=== PATIENT | male | born 1940 | race African-American/Black ===

== ENCOUNTER 2017-09-10 15:51 | Inpatient (IN) | payer OTHER ==
[~2017-09-10] VITALS: Ht 55.9 cm; Wt 114.0 kg
--- NOTE | ~2017-09-10 | 2DMMODE ---
[facility] [address] [place] [address] 2 D/M-MODE ECHOCARDIOGRAM Name: ANGELA COLLIER Room #: 216-P [facility] IN ..#: [id number] Admission: 09/10/17 Attend Phys: Tim Lockhart, Discharge: Date of : 40 Date of Service: 09/11/17 1648 Report #: [id number] THIS REPORT FOR: //name// APPROVED REPORT Study performed: 09/11/2017 10:29:52 EXAM: Comprehensive 2D, Doppler, and color-flow Echocardiogram Patient Location: Bedside Room #: 216 Status: routine BSA: 2.49 BP: 197/94 mmHg Other Information Study Quality: Good Indications Assess Ejection Fraction Hypertension/HDD 2D Dimensions RVDd: 38.51 mm LVEF(%): 61.27 (>50%) IVSd: 19.98 (7-11mm) LVOT Diam: 21.01 (18-24mm) LVDd: 44.99 mm PWd: 17.26 (7-11mm) Ascending Ao: 31.93 (22-36mm) LVDs: 30.27 (25-40mm) Aortic Root: 33.34 mm IVC: 16.00 mm Keyes's LVEF: 61.27 % Volumes Left Atrial Volume (Systole) Single Plane 4CH: 91.38 mL Single Plane 2CH: 116.78 mL LA ESV Index: 45.00 mL/m2 Aortic Valve AoV Peak Jeff.: 1.65 m/s AO Peak Gr.: 10.93 mmHg LVOT Max P.31 mmHg LVOT Max V: 1.04 m/s JOLANTA Vmax: 2.18 cm2 Mitral Valve MV Decel. Time: 206.26 ms MV E Max Jeff.: 1.10 m/s [facility] [place] [address] 2 D/M-MODE ECHOCARDIOGRAM Name: ANGELA COLLIER Room #: 216-P [facility] IN M.R.#: [id number] Admission: 09/10/17 Attend Phys: Tim Lockhart, Discharge: Date of : 40 Date of Service: 09/11/17 1648 Report #: [id number] IVRT: 119.95 ms Pulmonary Valve PV Peak Jeff.: 0.89 m/s PV Peak Gr.: 3.19 mmHg Tricuspid Valve TR Peak Jeff.: 3.27 m/s RAP Estimate: 5.00 mmHg TR Peak Gr.: 42.82 mmHg Left Ventricle The left ventricle is normal size. There is normal LV segmental wall motion. Moderate concentric left ventricular hypertrophy. The left ventricular systolic function is normal. The left ventricular ejection fraction is within the normal range. LVEF is 60%. This study is not technically sufficient to allow evaluation of the LV diastolic function due to atrial fibrillation. Right Ventricle The right ventricle is normal size. The right ventricular systolic function is normal. Atria Left atrium is dilated. Right atrium is dilated. Aortic Valve Aortic valve leaflets are mildly thickened. Trace aortic regurgitation. There is no aortic valvular stenosis. Mitral Valve Mitral valve leaflets are thickened. Mild mitral regurgitation. No evidence of mitral valve stenosis. Tricuspid Valve The tricuspid valve is normal in structure. There is mild tricuspid regurgitation. The right atrial pressure is estimated at 5 mmHg. PAP is estimated at 48 mmHg. Pulmonic Valve The pulmonary valve is normal in structure. Trace pulmonic regurgitation. Great Vessels The aortic root is normal in size. IVC is normal in size and collapses >50% with inspiration. Pericardium [facility] [address] [place] [address] 2 D/M-MODE ECHOCARDIOGRAM Name: ANGELA COLLIER Room #: 216-P [facility] IN [facility].#: [id number] Admission: 09/10/17 Attend Phys: Tim Lockhart, Discharge: Date of : 40 Date of Service: 09/11/17 1648 Report #: [id number] There is no pericardial effusion. <Conclusion> The left ventricular systolic function is normal. LVEF is 60%. Normal LV segmental wall motion. Both atria are mildly dilated. Aortic valve leaflets are mildly thickened. No aortic valvular stenosis, mild insufficiency. Mitral valve leaflets are thickened. Mild mitral regurgitation. Pulmonary artery pressure of 48mmHg There is no pericardial effusion. <ELECTRONICALLY SIGNED> By: Al De Los Santos MD, FACC 09/11/171647 47 47 Al De Los Santos MD, FACC /INF
[2017-09-10 20:02] VITALS: BP 160/75
[2017-09-10 20:30] LABS: HEMATOCRIT 41.3 % (42.0-52.0); MCH 31.4 pg (26.0-34.0); MCHC 33.9 g/dL (28.0-37.0); MCV 92.8 fL (80.0-100.0); RBC 4.45 mil/uL (4.50-6.00); RDW 12.9 % (10.5-14.5); WBC 5.2 thou/uL (4.0-11.0)
[2017-09-10 20:51] LABS: ANION GAP 6 mmol/L (7-16); BUN 16 mg/dL (7-18); CALCIUM 9.3 mg/dL (8.5-10.1); CHLORIDE 106 mmol/L (98-107); CO2 31 mmol/L (21-32); CREATININE 1.3 mg/dL (0.7-1.3); GLUCOSE 101 mg/dL (74-106); POTASSIUM 3.4 mmol/L (3.5-5.1); SODIUM 143 mmol/L (136-145); TROPONIN-I < 0.04 ng/mL (<0.04-0.07)
[2017-09-10 23:44] VITALS: BP 163/85
[2017-09-11 04:58] VITALS: BP 145/97
[2017-09-11 06:09] LABS: CALCIUM 9.2 mg/dL (8.5-10.1); CREATININE 1.2 mg/dL (0.7-1.3); POTASSIUM 3.6 mmol/L (3.5-5.1)
[2017-09-11 08:34] VITALS: BP 197/94
[2017-09-11 08:52] LABS: ALBUMIN 3.4 g/dL (3.4-5.0); CALCIUM 9.2 mg/dL (8.5-10.1); CREATININE 1.3 mg/dL (0.7-1.3); POTASSIUM 3.6 mmol/L (3.5-5.1); TOTAL PROTEIN 6.6 g/dL (6.4-8.2)
[2017-09-11 11:58] VITALS: BP 171/91
[2017-09-11 15:10] VITALS: BP 140/83
[2017-09-11 19:50] VITALS: BP 160/79
[2017-09-12 03:26] VITALS: BP 125/56
[2017-09-12 03:48] VITALS: BP 145/85
[2017-09-12 04:08] LABS: ALBUMIN 3.3 g/dL (3.4-5.0); CALCIUM 8.9 mg/dL (8.5-10.1); CREATININE 1.3 mg/dL (0.7-1.3); POTASSIUM 3.2 mmol/L (3.5-5.1); TOTAL BILIRUBIN 0.7 mg/dL (<0.1-1.0); TOTAL PROTEIN 6.5 g/dL (6.4-8.2)
[2017-09-12 08:00] VITALS: BP 149/77
[2017-09-12 11:50] VITALS: BP 142/72
[2017-09-12 16:05] VITALS: BP 116/65
[2017-09-12] MEDS ORDERED: XARELTO20 MG PO (16:53)
[2017-09-12] MEDS ORDERED: ATORVASTATIN CA10 MG PO (16:53)
[2017-09-12] MEDS ORDERED: AMLODIPINE BESYL5 M1 PO (16:59)
[2017-09-12] MEDS ORDERED: MOBIC7.5 M1 PO (16:59)
[2017-09-12] MEDS ORDERED: POTASSIUM20 PO (16:59)
[2017-09-12] MEDS ORDERED: BYSTOLIC10 MG PO (16:59)
[2017-09-12] MEDS ORDERED: LASIX 40 MG TAB40 M2 PO (16:59)
[2017-09-12] MEDS ORDERED: ALDACTONE25 MG PO (17:08)
[2017-09-12 19:45] VITALS: BP 154/85
[2017-09-13 04:05] VITALS: BP 161/79
[2017-09-13 04:50] LABS: ALBUMIN 3.3 g/dL (3.4-5.0); CALCIUM 9.2 mg/dL (8.5-10.1); CREATININE 1.4 mg/dL (0.7-1.3); POTASSIUM 3.3 mmol/L (3.5-5.1); TOTAL BILIRUBIN 0.8 mg/dL (<0.1-1.0); TOTAL PROTEIN 6.7 g/dL (6.4-8.2)
[2017-09-13 07:35] VITALS: BP 172/100
[2017-09-13 10:21] VITALS: BP 172/100
[2017-09-13 10:23] VITALS: BP 172/100
[2017-09-13 11:35] VITALS: BP 110/38
[2017-09-13 13:43] VITALS: BP 172/100
== END 2017-09-13 14:51 | disposition home or self-care (01) | DRG 305 ==
LOC: 2N 15:51 → ENTRNSPT 09-13 13:20 → EDTRNSPTSTS 09-13 13:23 → 2N 09-13 14:51
PROVIDERS: Internal Medicine Cardiovascular Disease; Nurse Practitioner Adult Health
DX: I16.0 Hypertensive urgency (principal); I50.30 Unspecified diastolic (congestive) heart failure; I48.2 Chronic atrial fibrillation; I11.0 Hypertensive heart disease with heart failure
CPT/HCPCS: 10081

== ENCOUNTER → 2020-05-12 | Outpatient (CLI) | payer OTHER ==
[~2020-05-12] MED LIST: ALDACTONE25 MG PO; AMLODIPINE BESYL5 M1 PO; ATORVASTATIN CA10 MG PO; BYSTOLIC10 MG PO; LASIX 40 MG TAB40 M2 PO; MOBIC7.5 M1 PO; POTASSIUM20 PO; XARELTO20 MG PO
== END ==
LOC: SJCVC 10:55
PROVIDERS: ATTEND Internal Medicine Cardiovascular Disease
DX: I48.20 Chronic atrial fibrillation, unspecified (principal); I45.10 Unspecified right bundle-branch block; R94.31 Abnormal electrocardiogram [ECG] [EKG]; I25.10 Atherosclerotic heart disease of native coronary artery without angina pectoris; I10 Essential (primary) hypertension; E78.00 Pure hypercholesterolemia, unspecified; D68.59 Other primary thrombophilia; E78.5 Hyperlipidemia, unspecified; M81.0 Age-related osteoporosis without current pathological fracture; Z79.899 Other long term (current) drug therapy; Z82.49 Family history of ischemic heart disease and other diseases of the circulatory system; Z87.891 Personal history of nicotine dependence

== ENCOUNTER → 2020-06-06 | Outpatient (CLI) | payer OTHER | LOC: SJCVCIMAG 07:45 | PROVIDERS: ATTEND Internal Medicine Cardiovascular Disease | DX: I08.1 Rheumatic disorders of both mitral and tricuspid valves (principal); I48.20 Chronic atrial fibrillation, unspecified; I11.9 Hypertensive heart disease without heart failure; I25.10 Atherosclerotic heart disease of native coronary artery without angina pectoris; Z87.891 Personal history of nicotine dependence ==

== ENCOUNTER 2020-06-22 16:34 | Emergency (ER) | payer OTHER ==
[~2020-06-22] VITALS: Ht 195.6 cm; Wt 108.4 kg
[2020-06-22 18:40] LABS: ABSOLUTE NEUTROPHILS 7.8 thou/uL (1.4-8.2); BASOPHILS 0.3 % (0.0-2.0); HEMATOCRIT 40.1 % (42.0-52.0); HEMOGLOBIN 13.4 gm/dL (14.0-18.0); LYMPHOCYTES 5.3 % (24.0-44.0); MCH 31.1 pg (26.0-34.0); MCHC 33.5 g/dL (28.0-37.0); MCV 92.7 fL (80.0-100.0); MONOCYTES 1.2 % (1.0-8.0); PLATELET COUNT 190 thou/uL (150-400); POLYS 93.2 % (36.0-66.0); RBC 4.32 mil/uL (4.50-6.00); RDW 13.3 % (10.5-14.5); WBC 8.3 thou/uL (4.0-11.0)
[2020-06-22 19:00] LABS: CALCIUM 9.6 mg/dL (8.5-10.1); CREATININE 2.1 mg/dL (0.7-1.3); POTASSIUM 3.8 mmol/L (3.5-5.1)
[2020-06-22 19:04] LABS: ALBUMIN 4.1 g/dL (3.4-5.0); DIRECT BILIRUBIN 0.2 mg/dL (<0.1-0.2); TOTAL BILIRUBIN 0.6 mg/dL (0.2-1.0); TOTAL PROTEIN 8.2 g/dL (6.4-8.2)
[2020-06-22 19:37] LABS: URINE BILIRUBIN NEGATIVE (Negative); URINE BLOOD TRACE (Negative); URINE CLARITY CLEAR; URINE COLOR YELLOW; URINE GLUCOSE-RANDOM* NEGATIVE (Negative); URINE KETONES NEGATIVE (Negative); URINE LEUKOCYTES-REFLEX NEGATIVE (Negative); URINE NITRITE-REFLEX NEGATIVE (Negative); URINE PROTEIN (DIPSTICK) NEGATIVE (Negative)
[2020-06-22 20:37] VITALS: BP 145/85
== END 2020-06-22 20:49 | disposition home or self-care (01) ==
LOC: ER 16:34
PROVIDERS: Emergency Medicine
DX: R33.9 Retention of urine, unspecified (principal); R51 Headache; I10 Essential (primary) hypertension; E78.00 Pure hypercholesterolemia, unspecified; Z95.5 Presence of coronary angioplasty implant and graft; Z96.652 Presence of left artificial knee joint; Z98.890 Other specified postprocedural states; Z79.899 Other long term (current) drug therapy; Z79.82 Long term (current) use of aspirin

== ENCOUNTER → 2020-06-22 | Outpatient (CLI) | payer OTHER ==
[~2020-06-22] VITALS: Ht 195.6 cm; Wt 112.9 kg
[~2020-06-22] MED LIST changes: +ASA81BEC PO; +BENICAR20 MG PO; +TORSEMIDE20 MG PO
--- NOTE | ~2020-06-22 | HC ---
[facility] [place] [address] CONSULTATION Name: ANGELA COLLIER Room #: REG SAJAN [place]#: [id number] Admission: 06/22/20 Attend Phys: Tim Lockhart MD, Discharge: Date of : 40 Report #: [id number] THIS REPORT FOR: cc: Alexys Jovel MD, Jeffrey A. MD Forman, John M. MD ~ CC: Tim Jovel DATE OF SERVICE: 06/22/2020 We were asked by Dr. Lockhart to see the patient. HISTORY OF PRESENT ILLNESS: The patient is a 79-year-old with coronary artery disease. The patient has a history of chronic atrial fibrillation and has had previous right coronary and LAD stents. The patient complains of some exertional angina. Nuclear stress test was positive. Cardiac catheterization today demonstrates 70% distal left main along with 90% LAD and 80% circumflex stenoses, right coronary has a 90% lesion in it with diffuse disease beyond. Left ventricular function was not checked today, but is normal by recent echo without important valve disease. Other history includes hypertension, hyperlipidemia. The patient denies diabetes mellitus. MEDICATIONS: At home includes vitamin C, Lipitor, Mobic, Bystolic, potassium, Xarelto, Aldactone, vitamin E. ALLERGIES: ALLERGIC TO CLONIDINE. 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 REVIEW OF SYSTEMS: GENERAL: No weight change. No fever. EYES: No vision change. HEENT: No headache, no hearing loss. No nasal or sinus problems. RESPIRATORY: Denies cough, denies dyspnea. CARDIAC: As mentioned, some exertional angina. Denies palpitations, but does admit to having had low heart rate. GASTROINTESTINAL: No nausea, vomiting, or blood. GENITOURINARY: Some urgency and frequency. No blood. MUSCULOSKELETAL: Occasional cramping in the feet. [facility] [address] [place] [address] CONSULTATION Name: ANGELA COLLIER Room #: [facility]#: [id number] Admission: 06/22/20 Attend Phys: Tim Lockhart MD, Discharge: Date of : 40 Report #: [id number] SKIN: No rash or infection. NEUROLOGIC: No motor or sensory loss. ENDOCRINE: No goiter, no tremor. PHYSICAL EXAMINATION: CONSTITUTIONAL: The patient is lying in bed, post catheterization. He is awake and alert, but a bit anxious. VITAL SIGNS: Blood pressure 160/70, heart rate 60. Atrial fibrillation. HEENT: No scleral icterus is seen. The patient does have arcus senilis. NECK: No mass, no bruit. CHEST: Clear to auscultation. HEART: Rhythm is atrial fibrillation (irregularly irregular). No murmur. ABDOMEN: Soft, no mass. EXTREMITIES: Trace edema distally. No clubbing or cyanosis, 2+ popliteal pulses bilaterally, 1+ dorsalis pedis pulses bilaterally. MUSCULOSKELETAL: We note, status post left knee replacement. SKIN: No rash or infection. PSYCHIATRIC: Shows insight into problem, but is a bit anxious today. Answers questions appropriately, otherwise. IMPRESSION: The patient has left main and 3-vessel coronary artery disease with good ventricular function. Risks and details of coronary artery bypass were discussed. Operation and other approaches were compared and contrasted. Risks of surgery include but are not limited to bleeding, infection, anesthesia risks, risks of heart and lung problems, stroke and as mentioned. Options and alternatives were reviewed. The patient understands all of this and wishes to proceed. I have discussed the case with Dr. Lockhart as well. We will obtain other remainder of preoperative studies and check MRSA today scheduling to be determined based on our ability to proceed in this environment with increased rates of COVID. Thank you for the consult. By: 1349 13 Chad Lopez MD /nt
[2020-06-22 07:29] VITALS: BP 162/79
[2020-06-22 07:37] LABS: HEMATOCRIT 40.4 % (42.0-52.0); HEMOGLOBIN 13.6 gm/dL (14.0-18.0); MCH 31.1 pg (26.0-34.0); MCHC 33.7 g/dL (28.0-37.0); MCV 92.1 fL (80.0-100.0); RBC 4.39 mil/uL (4.50-6.00); RDW 13.5 % (10.5-14.5); WBC 5.6 thou/uL (4.0-11.0)
[2020-06-22 07:45] LABS: CALCIUM 9.5 mg/dL (8.5-10.1); CREATININE 2.2 mg/dL (0.7-1.3); POTASSIUM 3.7 mmol/L (3.5-5.1)
--- NOTE | 2020-06-22 08:40 | EKG ---
[facility] [place] [address] ELECTROCARDIOGRAM REPORT Name: ANGELA COLLIER Harmony Room #: REG [facility]#: [id number] Admission: 06/22/20 Attend Phys: Tim Lockhart MD, Discharge: Date of : 40 Report #: [id number] THIS REPORT FOR: cc: Alexys Jovel MD, Jeffrey A. MD Lundgren, Craig H. 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 : 1940 Requested By: Tim Lockhart Order Number: [id number] MD: Al De Los Santos Measurements Intervals [place] Rate: 73 P: [place]: QRS: -55 QRSD: 170 T: 8 QT: 447 QTc: 493 Interpretive Statements Atrial fibrillation RBBB and LAFB Compared to ECG 08/03/2004 21:29:35 Left anterior fascicular block now present Right bundle-branch block now present Sinus bradycardia no longer present Atrial fibrillation has replaced sinus bradycardia Electronically Signed On 06-22-2020 8:40:30 CDT by Al De Los Santos [email or web address] <ELECTRONICALLY SIGNED> By: Al De Los Santos MD, [facility] 06/22/2040 1 1 Al De Los Santos MD, [facility] /EPI
--- NOTE | 2020-06-22 18:18 | CATHLAB ---
[facility] [address] [place] [address] INVASIVE PROCEDURE REPORT Name: ANGELA COLLIER Room #: REG SA[facility]AN [facility]#: [id number] Admission: 06/22/20 Attend Phys: Tim Lockhart MD, Discharge: Date of : 40 Report #: [id number] THIS REPORT FOR: cc: Alexys Jovel MD, Jeffrey A. MD Mancuso, Gerald M. MD [facility] ~ APPROVED REPORT Study performed: 06/22/2020 09:28:41 Patient Details Patient Status: Out-Patient Room #: The patient is a 79 year-old male Event Personnel Tim Lockhart Paper Maker, Alexx Marcial RN RN, Anastacia Tapia RN, Hattie Mckeon RTR, SUPERVISOR YARD Monitor, Tawana Galvan RTR Scrub Procedures Performed Art Access - R femoral artery* Darrion Access - R femoral vein Right and Left Heart Cath w/or w/o Coronarie [id number] RLHC Renal Bilateral Peripheral Angiography 8449415 CVRENALBIL Hemostasis with Manual pressure Hemostasis w/ Mynx 74107 Initial Mod Sed Same Phys/QHP Gr5y 794657 62312 Mod Sed Same Phys/QHP Ea 007043 Indication Dyspnea, Positive stress test Procedure Narrative The Right Groin^ was infiltrated with subcutaneous anesthesia. A PINNACLE 6FR Sheath #[id number] sheath was inserted into the RFA. Coronary angiography was performed using coronary diagnostic catheters. The right coronary system was accessed and visualized with a JR4 catheter. The left coronary system was accessed and visualized with a JL4 catheter. The left ventricle was accessed and visualized with a PIGTAIL catheter. Left ventricular/Aortic Valve gradient assessed via catheter pullback. Closure device was deployed with a 6 Fr MYNXGRIP 6/7F #[id number]. The patient tolerated the procedure well and there were no complications associated with the procedure. There was no hematoma. Intraoperative Conscious Sedation [facility] [place] [address] INVASIVE PROCEDURE REPORT Name: ANGELA COLLIER [id number] Admission: 06/22/20 Attend Phys: Tim Lockhart, Discharge: Date of : 40 Report #: [id number] Sedation start time: 10:14 Case end Time: 10:50 Fentanyl 50 mcg Versed 1 mg Fluoro Time: 3.40 minutes Dose: DAP 9396.00 cGycm2 1173 mGy Contrast Type and Amount: Visipaque 45 ml Hemodynamics The right atrial mean pressure is 14 mmHg. The right ventricular pressure is 48/4 mmHg. The pulmonary artery pressure is 45/21 mmHg with a mean of 30 mmHg. The mean pulmonary capillary wedge pressure is 19 mmHg. The aortic pressure is 173/80 mmHg with a mean of 120 mmHg. The left ventricular pressure is 168/8 mmHg with a mean of mmHg. The left ventricular end diastolic pressure is 24 mmHg. The cardiac output using thermo method is 5.45 L/min. The cardiac index using thermo method is 2.22 L/min/m2. Conclusion 1. Left ventricular pressure measurements were obtained but no LV gram performed. Ejection fraction has been mildly reduced. By noninvasive means #2 distal left main of 60 to 70% giving rise to complex trifurcation disease involving the distal left main ostial LAD and circumflex. #3 ostial calcified LAD lesion of 80% with mild diffuse distal disease. There is a proximal stent which is mildly restenosed. #4 ostial circumflex proximal circumflex with eccentric lesion of 70 to 80% mildly calcified nondominant but moderate in distribution distally. Large OM branch #5 dominant right coronary artery with high-grade subtotaled mid vessel lesion and moderately diseased PDA relatively small in caliber. Question of whether this would be a graftable vessel. #6 selective injection of bilateral renal arteries has a 30 to 40% ostial left renal artery stenosis and mild right ostial renal artery disease Recommendations and plan: Continue aggressive risk factor modification. Has renal insufficiency of limited contrast. IV Lasix has been given. Will obtain CV surgical consultation and carotid Doppler. <ELECTRONICALLY SIGNED> By: Tim Lockhart MD, FACC 06/22/201817 17 17 Tim Lockhart MD, FACC /INF
--- NOTE | 2020-06-23 07:29 | EKG ---
[facility] [place] [address] ELECTROCARDIOGRAM REPORT Name: AMIRAMACANGELA L Room #: REG [facility]#: [id number] Admission: 06/22/20 Attend Phys: Tim Lockhart MD, Discharge: Date of : 40 Report #: [id number] THIS REPORT FOR: cc: Alexys Jovel MD, Jeffrey A. MD Lundgren, Craig H. 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 : 1940 Requested By: Tim Lockhart Order Number: [id number] MD: Al De Los Santos Measurements Intervals [place] Rate: 76 P: [place]: QRS: -57 QRSD: 165 T: -6 QT: 446 QTc: 502 Interpretive Statements Atrial fibrillation Ventricular premature complex Right bundle branch block Inferior infarct, age indeterminate Baseline wander in lead(s) II,III,aVF Compared to ECG 06/22/2020 07:22:23 Ventricular premature complex(es) now present Electronically Signed On 06-23-2020 7:29:38 CDT by Al De Los Santos [email or web address] <ELECTRONICALLY SIGNED> By: Al De Los Santos MD, [facility] 06/23/20 0729 1255 1255 Al De Los Santos MD, [facility] /EPI
== END | disposition home or self-care (01) ==
LOC: CATH 06:44
PROVIDERS: ATTEND Internal Medicine Cardiovascular Disease
DX: R94.39 Abnormal result of other cardiovascular function study (principal); R06.00 Dyspnea, unspecified; I25.10 Atherosclerotic heart disease of native coronary artery without angina pectoris; T82.855A Stenosis of coronary artery stent, initial encounter; I70.1 Atherosclerosis of renal artery; I10 Essential (primary) hypertension; E78.5 Hyperlipidemia, unspecified; I48.91 Unspecified atrial fibrillation; Z79.899 Other long term (current) drug therapy; Z98.890 Other specified postprocedural states; Z96.652 Presence of left artificial knee joint; Z79.01 Long term (current) use of anticoagulants

== ENCOUNTER → 2020-06-22 | Outpatient (CLI) | payer OTHER | LOC: SJCVCIMAG 12:32 | PROVIDERS: ATTEND Internal Medicine Cardiovascular Disease | DX: I65.23 Occlusion and stenosis of bilateral carotid arteries (principal) ==

== ENCOUNTER 2020-07-03 18:40 | Emergency (ER) | payer OTHER ==
[~2020-07-03] VITALS: Ht 190.5 cm; Wt 108.9 kg
[2020-07-03 19:05] LABS: ABSOLUTE NEUTROPHILS 7.4 thou/uL (1.4-8.2); BASOPHILS 0.3 % (0.0-2.0); EOSINOPHILS 0.7 % (0.0-3.0); HEMATOCRIT 36.7 % (42.0-52.0); HEMOGLOBIN 12.5 gm/dL (14.0-18.0); LYMPHOCYTES 9.4 % (24.0-44.0); MCH 31.6 pg (26.0-34.0); MCHC 34.2 g/dL (28.0-37.0); MCV 92.3 fL (80.0-100.0); MONOCYTES 9.4 % (1.0-8.0); PLATELET COUNT 204 thou/uL (150-400); POLYS 80.2 % (36.0-66.0); RBC 3.97 mil/uL (4.50-6.00); RDW 12.8 % (10.5-14.5); WBC 9.2 thou/uL (4.0-11.0)
[2020-07-03 19:09] LABS: ANION GAP 12 mmol/L (7-16); BUN 48 mg/dL (7-18); CALCIUM 9.1 mg/dL (8.5-10.1); CHLORIDE 101 mmol/L (98-107); CO2 26 mmol/L (21-32); CREATININE 2.7 mg/dL (0.7-1.3); GLUCOSE 140 mg/dL (74-106); POTASSIUM 3.9 mmol/L (3.5-5.1); SODIUM 139 mmol/L (136-145)
[2020-07-03 19:19] LABS: ALBUMIN 3.5 g/dL (3.4-5.0); SGOT 14 U/L (15-37); SGPT 14 U/L (30-65); TOTAL BILIRUBIN 0.8 mg/dL (0.2-1.0); TOTAL PROTEIN 7.7 g/dL (6.4-8.2); TROPONIN-I <0.06 ng/mL (<0.06)
[2020-07-03 19:53] LABS: URINE BILIRUBIN NEGATIVE (Negative); URINE BLOOD 3+ (Negative); URINE GLUCOSE-RANDOM* NEGATIVE (Negative); URINE KETONES NEGATIVE (Negative); URINE LEUKOCYTES-REFLEX 3+ (Negative); URINE NITRITE-REFLEX NEGATIVE (Negative); URINE PROTEIN (DIPSTICK) 2+ (Negative); URINE UROBILINOGEN 0.2 E.U./dl (0.2-1.0)
[2020-07-03 19:54] LABS: URINE CLARITY CLOUDY; URINE COLOR REDDISH
[2020-07-03 19:56] LABS: BACTERIA-REFLEX 1-9 Few /HPF (None Seen); CASTS None Seen /LPF (None Seen); SQUAMOUS None Seen /LPF (0-3); URINE RBC >20 Many /HPF (0-2); URINE WBC-REFLEX 6-15 Few /HPF (0-5)
[2020-07-03 19:57] LABS: CRYSTALS None Seen /LPF (None Seen)
[2020-07-03 22:59] LABS: HEMATOCRIT 33.8 % (42.0-52.0); HEMOGLOBIN 11.7 gm/dL (14.0-18.0); MCH 32.2 pg (26.0-34.0); MCHC 34.5 g/dL (28.0-37.0); MCV 93.3 fL (80.0-100.0); RBC 3.63 mil/uL (4.50-6.00); WBC 10.3 thou/uL (4.0-11.0)
[2020-07-03] MEDS ORDERED: KEFLEX500 M1 PO (23:09)
[2020-07-03 23:10] VITALS: BP 111/62
--- NOTE | 2020-07-05 16:01 | EKG ---
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 : 1940 Requested By: Chad Newell Order Number: [id number] MD: Dc Proctor Measurements Intervals [place] Rate: 65 P: [place]: QRS: -52 QRSD: 150 T: -6 QT: 415 QTc: 432 Interpretive Statements Atrial fibrillation RBBB and LAFB Compared to ECG 06/22/2020 12:55:22 Left anterior fascicular block now present Ventricular premature complex(es) no longer present Myocardial infarct finding no longer present Electronically Signed On 07-05-2020 16:00:57 CDT by Dc Proctor [email or web address] <ELECTRONICALLY SIGNED> By: Dc Proctor MD 07/05/201599 12 12 Dc Proctor MD /EPI
== END 2020-07-03 23:51 | disposition home or self-care (01) ==
LOC: ER 18:40
PROVIDERS: Emergency Medicine
DX: N39.0 Urinary tract infection, site not specified (principal); R31.9 Hematuria, unspecified; R33.9 Retention of urine, unspecified; R11.0 Nausea; I10 Essential (primary) hypertension; E78.00 Pure hypercholesterolemia, unspecified; Z96.652 Presence of left artificial knee joint; Z98.890 Other specified postprocedural states; Z79.899 Other long term (current) drug therapy; Z79.82 Long term (current) use of aspirin

== ENCOUNTER → 2020-07-11 | Outpatient (CLI) | payer OTHER ==
[~2020-07-11] MED LIST changes: +KEFLEX500 M1 PO
== END ==
LOC: SJCVCIMAG 09:20
PROVIDERS: ATTEND Internal Medicine Cardiovascular Disease
DX: Z01.818 Encounter for other preprocedural examination (principal)

== ENCOUNTER 2020-07-18 14:17 | Emergency (ER) | payer OTHER ==
[~2020-07-18] VITALS: Ht 190.5 cm; Wt 108.9 kg
[~2020-07-18 14:17] MED LIST changes: +FINASTERIDE5 MG PO; +LIPITOR20 MG PO; +MELOXICAM15 MG PO; +POTASSIUM GLUCO99 M2 PO; +TAMSULOSIN HCL0.4 MG PO; +TYLENOL EXTRA500 MG PO; +VITAMIN C500 M1 PO; +VITAMIN E400 UNI6 PO
[2020-07-18 14:44] LABS: URINE BILIRUBIN NEGATIVE (Negative); URINE BLOOD NEGATIVE (Negative); URINE CLARITY CLEAR; URINE COLOR YELLOW; URINE GLUCOSE-RANDOM* NEGATIVE (Negative); URINE KETONES NEGATIVE (Negative); URINE LEUKOCYTES-REFLEX NEGATIVE (Negative); URINE NITRITE-REFLEX NEGATIVE (Negative); URINE PROTEIN (DIPSTICK) NEGATIVE (Negative)
[2020-07-18 16:18] VITALS: BP 164/87
== END 2020-07-18 16:19 | disposition home or self-care (01) ==
LOC: ER 14:17
PROVIDERS: Physician Assistant
DX: R33.9 Retention of urine, unspecified (principal); R31.9 Hematuria, unspecified; I10 Essential (primary) hypertension; E78.00 Pure hypercholesterolemia, unspecified; Z96.652 Presence of left artificial knee joint; Z79.899 Other long term (current) drug therapy

== ENCOUNTER 2020-07-21 06:15 | Inpatient (IN) | payer OTHER ==
[2020-07-18 11:11] LABS: URINE BILIRUBIN NEGATIVE (Negative); URINE BLOOD NEGATIVE (Negative); URINE CLARITY CLEAR; URINE COLOR YELLOW; URINE GLUCOSE-RANDOM* NEGATIVE (Negative); URINE KETONES NEGATIVE (Negative); URINE LEUKOCYTES-REFLEX NEGATIVE (Negative); URINE NITRITE-REFLEX NEGATIVE (Negative); URINE PROTEIN (DIPSTICK) NEGATIVE (Negative)
[2020-07-18 12:55] LABS: ABSOLUTE NEUTROPHILS 4.9 thou/uL (1.4-8.2); BASOPHILS 0.6 % (0.0-2.0); EOSINOPHILS 1.6 % (0.0-3.0); HEMATOCRIT 34.5 % (42.0-52.0); HEMOGLOBIN 11.5 gm/dL (14.0-18.0); LYMPHOCYTES 19.4 % (24.0-44.0); MCH 30.9 pg (26.0-34.0); MCHC 33.4 g/dL (28.0-37.0); MCV 92.3 fL (80.0-100.0); MONOCYTES 9.9 % (1.0-8.0); PLATELET COUNT 221 thou/uL (150-400); POLYS 68.5 % (36.0-66.0); RBC 3.74 mil/uL (4.50-6.00); RDW 13.2 % (10.5-14.5); WBC 7.1 thou/uL (4.0-11.0)
--- NOTE | 2020-07-18 13:09 | NUR ---
PT IN FOR HIS PRE SURGERY VISIT, 07/18. PT C/O URINARY RETENTION SINCE HIS CARDIAC CATH ON 06/22. HAS BEEN TO THE ED TWICE FOR THIS WITH THE LAST VISIT 07/03 WHERE AN INDWELLING CATH WAS LEFT IN PLACE D/T LARGE RESIDUAL URINE VOLUME. PT STATES HE ALSO COMPLETED AN ANTIBIOTIC FOR THIS. PT STATES HE SAW DR. FISHER'S PARTNER ON 07/13 WHEN THEY REMOVED HIS CATHETER AND SET UP A F/U APPT FOR AUGUST. PT STATES HE BEGAN NOTICING THE SAME SYMPTOMS A COUPLE DAYS POST CATHETER REMOVAL--UNABLE TO PASS MORE THAN A THIMBLE FULL OF URINE AND HAVING BLADDER SPASMS POST VOID MEANWHILE LEAKING URINE EVERY TIME HE STANDS UP AND THROUGH THE NITE. PT VOIDED 5-10ML FOR THIS NURSE, DID POST VOID BLADDER SCAN SHOWING > 675ML IN BLADDER. NOTIFIED CITLALI WITH DR. VALLEJO WHO ADVISED WE CONTACT DR. FISHER. CALL OUT TO HIM AT THIS TIME. SET UP APPT FOR PT TO SEE DR. VALLEJO AGAIN THIS WEEK ON SAT AT 1000 TO BE SURE HE WILL BE FIT FOR SURGERY ON SATURDAY. PT AWAITING RETURN CALL FROM DR. VALLEJO AT THIS TIME.
[2020-07-18 13:13] LABS: APTT 31.7 Seconds (24.5-32.8); INR 1.2
[2020-07-18 13:17] LABS: ALBUMIN 3.8 g/dL (3.4-5.0); CALCIUM 9.2 mg/dL (8.5-10.1); CREATININE 1.9 mg/dL (0.7-1.3); POTASSIUM 3.6 mmol/L (3.5-5.1); TOTAL BILIRUBIN 0.8 mg/dL (0.2-1.0); TOTAL PROTEIN 7.2 g/dL (6.4-8.2)
--- NOTE | 2020-07-18 14:24 | NUR ---
SPOKE WITH DR. JOSEPH'S OFFICE WHO WAS WILLING TO SEE PT IN THE MORNING TO REPLACE HIS CATHETER. PT DECIDED HE WOULD LIKE TO FEEL BETTER TODAY SO OPTED TO BE TAKEN TO THE ED TO HAVE THE CATHETER REPLACED. SPOKE WITH YFN CAMEJO, WHO AGREED TO SEE PT AND REPLACE HIS CATHETER. TAKEN BY FOR COVID TESTING FIRST THEN LEFT WITH THE ED STAFF. PT GIVEN INFO TO SEE DR. VALLEJO ON SAT AT 1000.
--- NOTE | 2020-07-19 07:41 | EKG ---
[facility] [place] [address] ELECTROCARDIOGRAM REPORT Name: MAC COLLIERFANI Antunez Room #: [facility] [place] ..#: [id number] Admission: Attend Phys: Chad Lopez MD Discharge: Date of : 40 Report #: [id number] THIS REPORT FOR: cc: Vikas Garcia Kent DO Lundgren, Craig H. 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 : 1940 Requested By: Chad Lopez Order Number: [id number] MD: Al De Los Santos Measurements Intervals [place] Rate: 56 P: [place]: QRS: -52 QRSD: 167 T: 8 QT: 436 QTc: 421 Interpretive Statements Atrial fibrillation Ventricular premature complex Right bundle branch block Compared to ECG 07/03/2020 19:13:17 Ventricular premature complex(es) now present Electronically Signed On 07-19-2020 7:41:04 CDT by Al De Los Santos [email or web address] <ELECTRONICALLY SIGNED> By: Al De Los Santos MD, [facility] 07/19/20 0741 1207 120 Al De Los Santos MD, [facility] /EPI
[2020-07-20 01:06] LABS: GLYCOHEMOGLOBIN (HGB A1C) 5.6 % (4.8-5.6)
[~2020-07-21] VITALS: Ht 195.6 cm; Wt 110.2 kg
[2020-07-21] VITALS (14 sets, daily range): BP systolic 102–147; BP diastolic 51–75
[2020-07-21 12:47] LABS: HEMATOCRIT 24.2 % (42.0-52.0); MCH 31.9 pg (26.0-34.0); MCHC 33.9 g/dL (28.0-37.0); RBC 2.57 mil/uL (4.50-6.00); RDW 13.4 % (10.5-14.5); WBC 3.7 thou/uL (4.0-11.0)
[2020-07-21 12:54] LABS: HEMOGLOBIN 8.2 gm/dL (14.0-18.0)
[2020-07-21 13:05] LABS: FIBRINOGEN 326.1 mg/dL (210-360); PROTIME 17.5 Seconds (9.3-11.4)
[2020-07-21 13:12] LABS: INR 1.7
[2020-07-21 14:02] LABS: POC BE 2 mmol/L (-2.0 to +3.0); POC CA IONIZED 4.3 mg/dL (4.5-5.3); POC GLUCOSE 145 mg/dL (70-99); POC HCO3 26.3 mmol/L (22.0-26.0); POC HEMOGLOBIN 8.5 g/dL (14.0-18.0); POC POTASSIUM 3.6 mmol/L (3.5-5.1); POC SODIUM 139 mmol/L (136-145); POC pCO2 38.5 mmHg (35.0-45.0); POC pH 7.443 (7.360-7.450)
[2020-07-21 14:02] LABS: POC BE 4 mmol/L (-2.0 to +3.0); POC CA IONIZED 4.7 mg/dL (4.5-5.3); POC GLUCOSE 111 mg/dL (70-99); POC HCO3 27.5 mmol/L (22.0-26.0); POC HEMOGLOBIN 10.2 g/dL (14.0-18.0); POC POTASSIUM 3.3 mmol/L (3.5-5.1); POC SODIUM 139 mmol/L (136-145); POC pCO2 38.3 mmHg (35.0-45.0); POC pH 7.464 (7.360-7.450)
[2020-07-21 14:02] LABS: POC BE -1 mmol/L (-2.0 to +3.0); POC CA IONIZED 4.9 mg/dL (4.5-5.3); POC GLUCOSE 129 mg/dL (70-99); POC HCO3 23.7 mmol/L (22.0-26.0); POC HEMOGLOBIN 9.2 g/dL (14.0-18.0); POC POTASSIUM 3.5 mmol/L (3.5-5.1); POC SODIUM 139 mmol/L (136-145); POC pCO2 39.3 mmHg (35.0-45.0); POC pH 7.388 (7.360-7.450)
[2020-07-21 14:02] LABS: POC BE 2 mmol/L (-2.0 to +3.0); POC CA IONIZED 4.3 mg/dL (4.5-5.3); POC GLUCOSE 158 mg/dL (70-99); POC HCO3 26.5 mmol/L (22.0-26.0); POC HEMOGLOBIN 7.8 g/dL (14.0-18.0); POC POTASSIUM 4.2 mmol/L (3.5-5.1); POC SODIUM 137 mmol/L (136-145); POC pCO2 41.8 mmHg (35.0-45.0)
[2020-07-21 14:02] LABS: POC BE 0 mmol/L (-2.0 to +3.0); POC CA IONIZED 5.2 mg/dL (4.5-5.3); POC GLUCOSE 150 mg/dL (70-99); POC HCO3 24.3 mmol/L (22.0-26.0); POC HEMOGLOBIN 8.8 g/dL (14.0-18.0); POC POTASSIUM 3.6 mmol/L (3.5-5.1); POC SODIUM 139 mmol/L (136-145); POC pH 7.403 (7.360-7.450)
[2020-07-21 14:02] LABS: POC BE 1 mmol/L (-2.0 to +3.0); POC CA IONIZED 4.7 mg/dL (4.5-5.3); POC GLUCOSE 142 mg/dL (70-99); POC HCO3 25.8 mmol/L (22.0-26.0); POC HEMOGLOBIN 8.8 g/dL (14.0-18.0); POC POTASSIUM 3.2 mmol/L (3.5-5.1); POC SODIUM 139 mmol/L (136-145); POC pCO2 39.7 mmHg (35.0-45.0); POC pH 7.421 (7.360-7.450)
[2020-07-21 14:02] LABS: POC BE 1 mmol/L (-2.0 to +3.0); POC CA IONIZED 4.4 mg/dL (4.5-5.3); POC GLUCOSE 155 mg/dL (70-99); POC HEMOGLOBIN 7.1 g/dL (14.0-18.0); POC POTASSIUM 3.9 mmol/L (3.5-5.1); POC SODIUM 139 mmol/L (136-145); POC pCO2 41.2 mmHg (35.0-45.0); POC pH 7.409 (7.360-7.450)
[2020-07-21 15:00] LABS: APTT 32.1 Seconds (24.5-32.8); INR 1.3; PROTIME 13.4 Seconds (9.3-11.4)
[2020-07-21 15:07] LABS: HEMATOCRIT 25.5 % (42.0-52.0); HEMOGLOBIN 8.7 gm/dL (14.0-18.0); MCH 31.6 pg (26.0-34.0); MCHC 33.9 g/dL (28.0-37.0); RBC 2.75 mil/uL (4.50-6.00); RDW 13.6 % (10.5-14.5); WBC 8.1 thou/uL (4.0-11.0)
[2020-07-21 15:08] LABS: CALCIUM 8.2 mg/dL (8.5-10.1); CREATININE 1.7 mg/dL (0.7-1.3); MAGNESIUM 2.4 mg/dL (1.8-2.4); POTASSIUM 3.8 mmol/L (3.5-5.1)
[2020-07-21 15:08] LABS: BE(vivo) -2.8 mmol/L (-2 to +3); HCO3 22.6 mmol/L (22.0-26.0); PCO2 41.5 mmHg (35.0-45.0); pH 7.354 (7.360-7.450); sO2 99.2 % (92.0-98.0)
--- NOTE | 2020-07-21 15:55 | NUR ---
ASSESSMENTS AND INTERVENTIONS DOCCUMETNED. PATIENT ARRIVED TO ICU AROUND 1418. PATIENT NON RESPONSIVE AND ON NO SEDATION. ANESTHESIA, OR NURSE AND YFN CAZARES AT BEDSIDE. PATIENT STABALIZED. DR. KOO ROUNDING ON PATIENT. PATIENT HAVING NO CHEST TUBE OUTPUT ON ARRIVAL. CHEST TUBE CHANGED PRIOR TO OR DEPARTURE. DR. KOO AWARE. SALES REP STATING PATIENT HAD ABOUT 100CC OUT PRIOR TO CHAMBER CHANGE.
[2020-07-21 19:00] LABS: CALCIUM 8.7 mg/dL (8.5-10.1); CREATININE 1.6 mg/dL (0.7-1.3); POTASSIUM 4.1 mmol/L (3.5-5.1)
[2020-07-21 19:46] LABS: BE(vivo) -2.5 mmol/L (-2 to +3); HCO3 21.5 mmol/L (22.0-26.0); PCO2 34.3 mmHg (35.0-45.0); PO2 194.2 mmHg (80.0-100.0); pH 7.416 (7.360-7.450); sO2 99.4 % (92.0-98.0)
[2020-07-21 20:40] LABS: BE(vivo) -2.8 mmol/L (-2 to +3); HCO3 22.4 mmol/L (22.0-26.0); PCO2 40.1 mmHg (35.0-45.0); PO2 123.1 mmHg (80.0-100.0); pH 7.364 (7.360-7.450); sO2 98.3 % (92.0-98.0)
[2020-07-22] VITALS (15 sets, daily range): BP systolic 110–134; BP diastolic 59–77
[2020-07-22 06:33] LABS: HEMATOCRIT 29.3 % (42.0-52.0); HEMOGLOBIN 9.7 gm/dL (14.0-18.0); MCH 31.3 pg (26.0-34.0); MCV 94.8 fL (80.0-100.0); RBC 3.09 mil/uL (4.50-6.00); WBC 9.2 thou/uL (4.0-11.0)
[2020-07-22 06:41] LABS: CREATININE 1.5 mg/dL (0.7-1.3); MAGNESIUM 2.5 mg/dL (1.8-2.4); POTASSIUM 3.7 mmol/L (3.5-5.1)
--- NOTE | 2020-07-22 06:41 | NUR ---
Please note, Chest tube drainage was miscalculated, Mediastinal tubes with 230 ml's and pleural tube with 130 ml's of drainage. Walters catheter with 1150 ml's of clear yellow urine to DD. Pt was gotten up to the recliner this morning, he transferred well and is currently resting with his eyes closed. He has a low dose of cardene infusing to keep art line BP <140 mmHg. MAP's on the art line and cuff pressures have consistently been 70's to 80's. Pt was extubated at 2049, was placed on face shield at 40% and was changed to NC at 2341, sats have been 98% and above, BUL are coarse at times, diminished to bases. Insulin is infusing at 2 units/hr, with BGL's ranging from 164 to 86. Pt has been treated for discomfort with relief obtained. Will continue to monitor.
--- NOTE | 2020-07-22 09:08 | EKG ---
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 : 1940 Requested By: Edward Bucio Order Number: [id number] MD: Al De Los Santos Measurements Intervals [place] Rate: 71 P: 66 MS: 189 QRS: -34 QRSD: 124 T: 10 QT: 498 QTc: 542 Interpretive Statements Sinus rhythm Atrial premature complexes Incomplete right bundle branch block Diffuse ST segment elevation, consider pericarditis Compared to ECG 07/18/2020 12:07:24 Atrial premature complex(es) now present ST segment elevation is now present Atrial fibrillation no longer present Electronically Signed On 07-22-2020 9:08:20 CDT by Al De Los Santos [email or web address] <ELECTRONICALLY SIGNED> By: Al De Los Santos MD, [facility] 07/22/20907 2 2 Al De Los Santos MD, [facility] /EPI
[2020-07-22 09:57] LABS: POC BE 0 mmol/L (-2.0 to +3.0); POC GLUCOSE 161 mg/dL (70-99); POC HCO3 25.1 mmol/L (22.0-26.0); POC HEMOGLOBIN 8.8 g/dL (14.0-18.0); POC POTASSIUM 3.7 mmol/L (3.5-5.1); POC SODIUM 141 mmol/L (136-145); POC pCO2 41.3 mmHg (35.0-45.0); POC pH 7.392 (7.360-7.450)
--- NOTE | 2020-07-22 09:58 | NUR ---
ASSESSMENT: CM REVIEWED CHART. PT IS S/P CABG. CM REACHED OUT TO PATIENTS DAUGHTER ROBERT TO GATHER INFORMATION. PT LIVES IN A HOUSE ALONE. PT HAS ABOUT 9 STEPS WITH HANDRAILS TO ENTER THE FRONT DOOR BUT SHE STATES THEY CAN WALK THROUGH THE YARD TO AVOID STEPS. SHE REPORTS ONCE INSIDE PT HAS ABOUT 21 TOTAL STEPS TO HIS BEDROOM. PT NORMALLY AMBULATES USING A CANE OR WALKER. DAUGHTER REPORTS THAT PATIENT STILL DRIVES AND IS VERY INDEPENDENT. SHE REPORTS THAT THROUGH THE PANDEMIC SHE HAS BEEN GOING TO THE STORE FOR HIM. PTS DAUGHTER REPORTS LIVING CLOSE AND IS ABLE TO STAY THE NIGHT WITH HIM IF NEEDED BUT REPORTS WORKING DURING THE DAY. SHE REPORTS PT HAS NOT HAD HH IN THE PAST NOR BEEN TO A SNF. PT/OT HAS BEEN ORDERED TO SEE PATIENT. SHE REPORTS PT WILL WANT TO GO HOME AT DISCHARGE AND LIKELY WILL NOT WANT HH BUT SHE REPORTS THEY HAVE NO PREFERENCE OF HH COMPANY IF ONE IS NEEDED. CM WILL CONTINUE TO FOLLOW TO ASSIST NEEDED.
--- NOTE | 2020-07-22 14:24 | NUR ---
Nutrition: Consult received. Pt S/P CABG with left atrial appendage clip. Will followup when out of ICU to assess education needs.
--- NOTE | 2020-07-22 14:26 | O ---
[facility] [place] [address] OPERATIVE REPORT Name: ANGELA COLLIER Room #: 249-P ADM IN M.R.#: [id number] Admission: 07/21/20 Attend Phys: Chad Lopez MD Discharge: Date of : 40 Report #: [id number] THIS REPORT FOR: cc: Vikas Garcia Kent DO Forman,Chad Vitale MD ~ CC: Chad Monson DATE OF SERVICE: 07/21/2020 PREOPERATIVE DIAGNOSIS: Coronary artery disease and atrial fibrillation (chronic). POSTOPERATIVE DIAGNOSIS: Coronary artery disease and atrial fibrillation (chronic). OPERATION: Coronary artery bypass x 5 including left internal mammary artery to left anterior descending artery, saphenous vein to marginal 1, and marginal 2 and saphenous vein to posterior descending artery and endoscopic harvest, left greater saphenous vein and left atrial clip application. SURGEON: Chad Lopez MD PERCUSSION TEACHER: YFN Ribera. ANESTHESIA: General. INDICATIONS: The patient is an 80-year-old seen for Dr. Lockhart. The patient has 70% left main and subtotal right coronary artery stenoses. Left ventricular function is satisfactory. The patient has chronic atrial fibrillation. FINDINGS AND TECHNIQUE: After general anesthesia was established, saphenous vein was harvested using an endoscopic approach and prepared for use as a conduit. Exposure was obtained through median sternotomy. Left internal mammary artery was harvested from chest wall. Pericardial well was made. Cannulation sutures were placed. Heparin was given. Aorta was cannulated. Right atrium was cannulated. Cardioplegia needle was positioned in the aortic root. Retrograde cardioplegic catheter was placed in coronary sinus. Cardiopulmonary bypass was established. The aorta was cross clamped. Antegrade and retrograde cardioplegia were given. Ice was poured in the pericardial well. The heart was stopped. [facility] [address] [place] [address] OPERATIVE REPORT Name: ANGELA COLLIER Room #: 249-P [facility] IN .R.#: [id number] Admission: 07/21/20 Attend Phys: Chad Lopez MD Discharge: Date of : 40 Report #: [id number] During electromechanical arrest, the distal anastomoses were performed and end-to-side anastomosis was made between vein and the posterior descending artery. This was diffusely diseased vessel and the artery itself was a 1.3 mm vessel. Cold cardioplegia was given. A separate segment of vein was sewn in end-to-side fashion to the large second marginal. This was a 1.7 mm vessel. Cold cardioplegia was given. The same segment of vein was sewn in end-to-side fashion to a diffusely diseased first marginal artery. This was a 1.4 mm vessel. Cold cardioplegia was given. Left internal mammary artery was sewn in end-to-side fashion to left anterior descending artery. This was diffusely diseased vessel as well and was 1.5 mm were bypassed. The anastomosis was checked with the temperature technique and the Doppler. Cold cardioplegia was given. Two proximal anastomoses were performed. When these were complete, warm retrograde cardioplegia was given followed by warm continuous blood to the coronary sinus. When this infusion was complete, the crossclamp was removed, de-airing maneuvers were performed. The anastomoses were inspected and found to be satisfactory. As the patient warmed, nice cardiac activity resumed, chest tubes and pacing wires were placed, a marker was placed around the proximal anastomoses. It should be mentioned that immediately after cardiopulmonary bypass was established and the crossclamp was applied and cardioplegia was given the left atrial clip was placed. The left atrial appendage was measured and a 50 mm clip was selected and placed securely at the base of the appendage. After the proximal anastomoses were performed, warm retrograde cardioplegia was given followed by warm continuous blood to the coronary sinus. When this infusion was complete, the crossclamp was removed, de-airing maneuvers were performed. The anastomoses were inspected and found to be satisfactory. As the patient warmed, nice cardiac activity resumed, chest tubes and pacing wires were placed, a marker was placed around the proximal anastomoses. When the patient was warm, he was weaned from cardiopulmonary bypass. Venous cannula was removed. Protamine was given, the aortic cannula was removed. Flows were measured in the bypass grafts. When hemostasis was satisfactory, chest was irrigated with antibiotic solution and closed in the usual fashion. The patient was taken to the Intensive Care Unit in good condition having tolerated the procedure well. All counts reported as correct. <ELECTRONICALLY SIGNED> By: Chad Lopez MD 07/22/20 1426 38 50 Chad Lopez MD /nt
[2020-07-23] VITALS (8 sets, daily range): BP systolic 100–131; BP diastolic 47–75
[2020-07-23 05:10] LABS: HEMATOCRIT 26.2 % (42.0-52.0); HEMOGLOBIN 8.9 gm/dL (14.0-18.0); MCHC 33.8 g/dL (28.0-37.0); MCV 94.6 fL (80.0-100.0); RBC 2.77 mil/uL (4.50-6.00); RDW 13.8 % (10.5-14.5); WBC 10.7 thou/uL (4.0-11.0)
--- NOTE | 2020-07-23 05:16 | NUR ---
Pt reports better pain control this shift, he has been resting better and able to use the IS more comfortably. Pt has declined repositioning, the HOB has been adjusted, especially when taking PO food/fluids. He has been afebrile, heart rate has been a bit irregular through the night, BP has been stable, with cardene infusing at 2 mg/hr (9.2 ML'S). Pt is on room air, LCTA, sats have been 91% and above. Pleural chest tube remains patent, color of drainage is pale pink and approx 160 ml's this shift. Walters is draining clear yellow urine, over 600 ml's voided. The bed is in the low/locked position, the call light is within reach, the siderails are up x 4 and the pt is progressing toward his POC goals. Pt to be transferred to his recliner this morning.
[2020-07-23 05:29] LABS: CALCIUM 8.8 mg/dL (8.5-10.1); CREATININE 1.5 mg/dL (0.7-1.3); POTASSIUM 3.8 mmol/L (3.5-5.1)
--- NOTE | 2020-07-23 14:00 | NUR ---
Assummed care on patient at 0700 today. Patient up in the chair for 3 hours this AM. Pain controlled with pain management regime. Rt radial A line, acosta and introducer DC'D per order. Patient progressing, will continue to monitor.
--- NOTE | 2020-07-23 19:41 | NUR ---
Patient transferred to [facility] from ICU at 1745 with belongings, accomanyied by his daughter Marilu. via chair. This nurse assummed care on 2N. Patient continues to pick at food and he is dozing in the chair. Up to the commode earlier at approximately 1530 for bm. Monitor stable.
--- NOTE | 2020-07-24 01:33 | NUR ---
ASSESSMENTS CHARTED, MEDS CHARTED GIVEN. PATIENT ARRIVED PRIOR TO SHIFT CHANGE, STILL BEING SETTLED INTO ROOM. RESTING IN RECLINER AT START OF SHIFT. PATIENT'S SAVAGE WAS DISCONTINUED [id number] AND PATIENT STILL HAD NOT URINATED. BLADDER SCANNED INTIALLY WITH 382 SCANNED. WAITED A HOUR, RESCANNED 456 MLS. STRAIGHT CATH'D 400 MLS OUT. PAIN MEDS GIVEN AFTER PATIENT TRANSFERED TO BED. FALL PRECAUTIONS IN PLACE.
[2020-07-24 04:00] VITALS: BP 145/72
[2020-07-24 08:07] VITALS: BP 134/64
[2020-07-24 11:18] VITALS: BP 119/69
[2020-07-24 15:35] VITALS: BP 114/61
--- NOTE | 2020-07-24 17:11 | NUR ---
PT CARE ASSUMED APPROX 0700. ASSESSMENTS CHARTED. PT DENIES SOA, N/V. VSS. UP WITH MAX ASSIST TO CHAIR AND BSC. PT REPORTS ADEQUATE PAIN MANAGEMENT OF RIGHT ANKLE. HE REPORTS PAIN AN OLD FOOTBALL INJURY THAT IS CHRONIC. SAVAGE PLACED PER DR VALLEJO'S ORDER AFTER PT HAD EPISODES OF RETENTION X3. NO ISSUES WITH PLACEMENT. PT TOLERATING POC. NO DISTRESS NOTED.
[2020-07-24 20:05] VITALS: BP 128/70
[2020-07-25] VITALS (7 sets, daily range): BP systolic 110–169; BP diastolic 62–91
--- NOTE | 2020-07-25 03:20 | NUR ---
assumed pt care at thw change of shift, pt is awake, alert and orientedx4, makes needs known, c/o a 8/ pain on his right ankle, medicated prn as ordered with partial relief, remains on room air, vital signs stable, remains afib on the monitor, concerned about getting his mobility back, sternal dressing cdi, scds on, b/s stable, no acute distress noted, daughter updated about care this shift, will continue to monitor
[2020-07-25 04:30] LABS: HEMATOCRIT 28.2 % (42.0-52.0); HEMOGLOBIN 9.4 gm/dL (14.0-18.0); MCH 31.2 pg (26.0-34.0); MCHC 33.3 g/dL (28.0-37.0); MCV 93.9 fL (80.0-100.0); RDW 13.8 % (10.5-14.5); WBC 9.9 thou/uL (4.0-11.0)
[2020-07-25 04:33] LABS: CALCIUM 9.4 mg/dL (8.5-10.1); CREATININE 1.5 mg/dL (0.7-1.3)
--- NOTE | 2020-07-25 05:34 | NUR ---
attempted to obtain standing weight, pat unable to stand due to pain in his right ankle, medicated with no relief, will reasess again, vs remains stable
--- NOTE | 2020-07-25 10:23 | EKG ---
[facility] [place] [address] ELECTROCARDIOGRAM REPORT Name: MAC COLLIERFANI Antunez Room #: 211-P ADM IN M.R.#: [id number] Admission: 07/21/20 Attend Phys: Chad Lopez MD Discharge: Date of : 40 Report #: [id number] THIS REPORT FOR: cc: Vikas Garcia Kent DO Lundgren,Al Cosme MD [facility] ~ THIS REPORT FOR: //name// [facility] Test Date: 2020-07-25 Test Time: 07:06:03 Pat Name: ANGELA COLLIER Department: Room: 211 P Gender: M Floorperson: KERRIE : 1940 Requested By: Chad Lopez Order Number: [id number] MD: Al De Los Santos Measurements Intervals [place] Rate: 79 P: [place]: QRS: -44 QRSD: 150 T: 18 QT: 396 QTc: 455 Interpretive Statements Atrial fibrillation Right bundle branch block Inferior infarct, old Baseline wander in lead(s) V6 Compared to ECG 07/22/2020 07:13:58 Atrial fibrillation has replaced sinus rhythm Diffuse ST segment elevation is no longer present Electronically Signed On 07-25-2020 10:23:18 CDT by Al De Los Santos [email or web address] <ELECTRONICALLY SIGNED> By: Al De Los Santos MD, [facility] 07/25/20 1023 5 5 Al De Los Santos MD, [facility] /EPI
--- NOTE | 2020-07-25 17:54 | NUR ---
RECEIVED PT'S CARE AROUND 07; PT. ON BED; RESTING WITH EYES CLOSED; EQUAL CHEST RISING NOTICED; AFIB ON THE MONITOR; DURING AM ASSESSMENT PT. AOX4; C/O PAIN OVER R. ANKLE; PRN PO PAIN MEDICATION GIVEN WITH AM MEDICATIONS; [employer] SALES ENGINEER NOTIFIED DURING ROUNDING; ORDERS ON PLACED; ELEVATED URIC ACID; PHYSICIAN NOTIFIED DURING ROUNDING; ORDERS ON PLACED; MEDICATION GIVEN; PT. & DAUGHTER EDUCATED ABOUT NEW MEDICATIONS; ST. UNDERSTANDING; PT. NOT ABLE TO WORK WITH PT & OT DUE TO PAIN OVER ANKLE; PRN PAIN MEDICATION GIVEN EARLY ON THE AFTERNOON; MONITORING; EDUCATED ABOUT IS; ST. UNDERSTANDING; ASSESSMENT CHARGED; FOLLOWING POC; WILL PASS ON REPORT;
[2020-07-26 00:30] VITALS: BP 147/87
[2020-07-26 04:04] LABS: CALCIUM 8.8 mg/dL (8.5-10.1); CREATININE 1.6 mg/dL (0.7-1.3); POTASSIUM 4.2 mmol/L (3.5-5.1)
--- NOTE | 2020-07-26 04:06 | NUR ---
assumed pt care at the change of shift, pt is resting in bed, no signs of distress, assessments as charted, remains afib on the monitor, remains on room air, vss, bs stable, c/o a 6/10 pain on the left ankle, medicated prn as ordered with partial relief, will continue to monitor
[2020-07-26 05:00] VITALS: BP 150/77
--- NOTE | 2020-07-26 06:40 | NUR ---
attempted to take standing weight, pt sat on the side of the bed was wa not able to stand due to ankle pain, pt back in bed, will pass on report
[2020-07-26 07:26] VITALS: BP 152/83
--- NOTE | 2020-07-26 08:37 | EKG ---
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 /EPI
[2020-07-26 11:36] VITALS: BP 123/69
--- NOTE | 2020-07-26 14:11 | NUR ---
PATIENT IS A CANDIDATE FOR ACUTE REHAB/[facility]. AUTHORIZATION FROM INSURANCE REQUESTED THIS DATE AND CLINICAL INFORMATION FAXED TO INSURANCE COMPANY. AWAITING RESPONSE. ANALYTICAL DATA MINER AWARE. THANK YOU FOR THIS REFERAL.
--- NOTE | 2020-07-26 14:39 | NUR ---
CM REVIEWED CHART. [facility] HAS BEEN CONSULTED FOR PATIENT AND THEY ARE ABLE TO ACCEPT PATIENT PENDING INSURNACE AUTH. CM SPOKE WITH [facility] WHO REPORTS THEY HAVE STARTED THE AUTH PROCESS. CM WILL CONTINUE TO FOLLOW TO ASSIST NEEDED.
--- NOTE | 2020-07-26 15:02 | NUR ---
No dietary education needed at this time. Nutrition assessment for length of stay completed.
[2020-07-26 15:15] VITALS: BP 116/68
--- NOTE | 2020-07-26 17:43 | NUR ---
RECEIVED PT'S CARE AROUND 0720; PT. ON BED; AOX4; AFIB ON THE MONITOR; DURING AM ASSESSMENT C/O PAIN OVER R. ANKLE; PRN PAIN MEDICATION GIVEN WITH AM MEDICATIONS; EDUCATED ABOUT NEW MEDICATIONS; ST. UNDERSTANDING; EDUCATED ABOUT THE IMPORTANCE OF DRINKING ENSURANCE; ST. UNDERSTANDING; ICE PACK GIVEN FOR R. ANKLE; EDUCATED ABOUT THE IMPORTANCE OF GETTING UP FROM BED WITH REST IN BETWEEN; ST. UNDERSTANDING; PRN MIRALAX GIVEN; ABLE TO GET UP FROM BED TO CHAIR WITH PT; ABLE TO PERFORMED & USED THE BED SIDE COMMODE WITH OT; NOT ABLE TO HAVE A BM; ST. PASSING GAS; BACK ON BED DURING THE AFTERNOON; DAUGHTER UPDATED ABOUT IT DURING THE AFTERNOON; INSULIN REPLACED; ASSESSMENT CHARGED; FOLLOWING POC; WILL PASS ON REPORT;
[2020-07-26 20:30] VITALS: BP 129/71
--- NOTE | 2020-07-27 02:31 | NUR ---
ASSUMED CARE OF PATIENT AT 1900. AT INITIAL ASSESSMENT PATIENT C/O STERNAL PAIN AROUND INCISION SITE AND PAIN IN RIGHT FOOT. ADMINISTERED PRN NORCO ORDERED. ENCOURAGED I.S. PATIENT APPEARED TO REST WELL THROUGH THE NOC AND IS PROGESSING TOWARDS GOALS.
[2020-07-27 04:16] LABS: HEMATOCRIT 25.8 % (42.0-52.0); HEMOGLOBIN 8.7 gm/dL (14.0-18.0); MCH 31.5 pg (26.0-34.0); MCHC 33.6 g/dL (28.0-37.0); MCV 93.7 fL (80.0-100.0); RBC 2.76 mil/uL (4.50-6.00); WBC 9.9 thou/uL (4.0-11.0)
[2020-07-27 04:30] VITALS: BP 137/86
[2020-07-27 08:26] VITALS: BP 143/80
[2020-07-27 11:35] VITALS: BP 122/72
--- NOTE | 2020-07-27 15:26 | NUR ---
CALL RECEIVED FROM [facility] AUTHORIATION FOR ACUTE REHAB STAY FOR PATIENT, ANGELA COLLIER. REASON FOR DENIAL WAS THAT REQUEST LACKED SUPPORT FOR ACUTE REHAB STAY. IF PHYSICIAN WISHES TO PERFORM A PEER TO PEER CALL, IT CAN BE ARRANGED BY CALLING . CALL MUST BE SCHEDULED BY 11:00 J2EE PROGRAMMER ON . JOINTER SUBMARINE CABLE INFORMED OF DENIAL.
--- NOTE | 2020-07-27 16:00 | NUR ---
ASSESSMENT CHARTED. PT ALERT AND ORIENTED. VSS. UP IN THE CHAIR THIS SHIFT. PRN PAIN MED GIVEN WITH PARTIAL RELIEF. PARTICIPATED IN PT AND OT. NO CARDIAC OR RESPIRATORY DISTRESS NOTED. NO CONCERNS AT THIS TIME.
[2020-07-27 16:09] VITALS: BP 116/73
--- NOTE | 2020-07-27 16:31 | NUR ---
Spoke with patient and dtr Priti. Patient not accepted to [facility] insurance denied. Left [employer] list for post acute care in room with patient and emailed dtr. Discussed possible HH as well. Plan to determine how patient does with therapy in am. Discussed with Norris with CTS.
[2020-07-27 19:44] VITALS: BP 125/80
[2020-07-28 00:20] VITALS: BP 124/80
--- NOTE | 2020-07-28 02:51 | NUR ---
ASSUMED CARE 1900. PT ALERT AND ORIENTED. VITALS STABLE. SR ON THE MONITOR. REPEORTS MINIMAL STERNAL INCISION PAIN. PT ALSO REPORTS RIGHT TOE PAIN. ELSA DRESSING BLINKING YELLOW, PA AWARE, PT TO SHOWER TOMORROW AND HAVE DRESSING CHANGED. PT ENCOURAGED TO USE THE IS. NO OTHER CONCERNS AT THIS TIME. WILL CONTINUE TO MONITOR AND FOLLOW POC.
[2020-07-28 04:04] VITALS: BP 141/84
[2020-07-28 05:59] LABS: HEMATOCRIT 27.8 % (42.0-52.0); HEMOGLOBIN 9.4 gm/dL (14.0-18.0); MCH 31.6 pg (26.0-34.0); MCHC 33.7 g/dL (28.0-37.0); MCV 93.8 fL (80.0-100.0); RBC 2.97 mil/uL (4.50-6.00); RDW 13.9 % (10.5-14.5); WBC 10.2 thou/uL (4.0-11.0)
[2020-07-28 06:22] LABS: CALCIUM 9.3 mg/dL (8.5-10.1); CREATININE 1.4 mg/dL (0.7-1.3); POTASSIUM 4.3 mmol/L (3.5-5.1)
[2020-07-28 07:30] VITALS: BP 127/71
[2020-07-28 11:40] VITALS: BP 107/63
[2020-07-28 16:00] VITALS: BP 94/53
--- NOTE | 2020-07-28 16:34 | NUR ---
FAXED REFERRAL TO [facility] SPOKE WITH AMAURI IN ADM SHE RECEIVED REFERRAL AND WILL REVIEW. DP TO FOLLOW.
--- NOTE | 2020-07-28 16:56 | NUR ---
Spoke with therapy and CTS. patient has not attempted steps at this time. he may struggle with steps with sternal precautions. Discussed with dtr and patient. Plan to pursue skilled care. Reviewed [employer] list inquired into [facility], no beds until next week, inquired into [facility] they are closed to admissions. Referral to [facility] who is allowing window visits. Patient cont to strongly want to return home. Needs Covid test.
[2020-07-28 20:39] VITALS: BP 134/66
[2020-07-29 03:30] VITALS: BP 149/87
--- NOTE | 2020-07-29 06:22 | NUR ---
PT ALERT AND ORIENTED. REPORTS FEELING BETTER THAN YESTERDAY. ELSA DRESSING INTACT BUT NOT BLINKING, UNSUCCESSFUL WITH ALL THE TROUBLESHOOT. AM RN NOTIFIED FOR PHYSICIAN UPDATE. ALL ASSESSMENTS DOCUMENTED. REPORTS STERNAL PAIN ALLEVIATED BY PRN NORCO. DENIES ANY OTHER C/O. WILL CONTINUE TO MONITOR AND FOLLOW POC
[2020-07-29 09:00] VITALS: BP 114/63
--- NOTE | 2020-07-29 15:21 | NUR ---
PT UP TO CHAIR AND AMBULATE HALLS WITH PT/OT. CONTINUE ICENTIVE SPIROMETER. PT RPOGRESSING TOWARDS GOALS.
[2020-07-29 16:30] VITALS: BP 104/53
--- NOTE | 2020-07-29 17:16 | NUR ---
Referral to [facility] for post acute care. They are accepting but do not have auth. Possible to rec auth on Saturday. Facility will inquire if rec, they will alert unit or contact centre supervisor. Chart will need to be copied. Orders faxed to [facility] [phone]. Call report to [facility] at [phone]. [facility] may arrange transport if not call [facility] at [phone] [facility]. Call dtr to alert of dc and timeframe.
[2020-07-29 20:45] VITALS: BP 153/74
--- NOTE | 2020-07-30 02:41 | NUR ---
assumed pt care at the change of shift, pt is awake, alert and orientedx4, remains afib on the monitor, denied pain during assessments, vss, remains on room air, reminded to use the IS, no acute distress noted, will continue to monitor
[2020-07-30 04:00] VITALS: BP 130/71
[2020-07-30 07:25] VITALS: BP 115/76
[2020-07-30 11:30] VITALS: BP 111/67
--- NOTE | 2020-07-30 15:47 | NUR ---
PT ALERT AND ORIENTED. VSS. PRN PAIN MED GIVEN WITH PARTIAL RELIEF. UP IN THE CHAIR THIS SHIFT. AFIB ON TELE. STERNUM PRECAUTION ENFORCED. PARTICIPATED IN PT/OT. PROGRESSING WELL TOWARDS DISCHARGE GOAL. NO CONCERNS AT THIS TIME.
[2020-07-30 18:00] VITALS: BP 111/69
[2020-07-30 21:14] VITALS: BP 100/51
--- NOTE | 2020-07-31 03:07 | NUR ---
ASSESSMENT DOCUMENTED.PT BEEN RESTING IN NO ACUTE DISTRESS.S/P CABG.DRESSING TO STERNUM CDI.VSS. ASSSITED WITH SHOWER LAST NOC.HAD LARGE SOFT BM.C/O GENERALIZED PAIN THAT WAS CONTROLLLED WITH TYLENOL.ENCOURAGED WITH IS,PULLS TO 1999.PT DENIES ANY CONCERNS AT THIS TIME.POC IS TO [facility] TO REHAB OR HOME W/HH.
[2020-07-31 04:45] VITALS: BP 136/85
[2020-07-31 07:50] VITALS: BP 119/56
[2020-07-31] MEDS ORDERED: NORVASC5 MG PO (08:44)
[2020-07-31] MEDS ORDERED: LIPITOR40 MG PO (08:44)
[2020-07-31] MEDS ORDERED: ASPIR 8181 MG PO (08:44)
[2020-07-31] MEDS ORDERED: FERREX 150 PLU1 EAC1 PO (09:27)
[2020-07-31 10:50] VITALS: BP 119/56
--- NOTE | 2020-07-31 12:02 | NUR ---
FAXED REFERRAL TO [facility] RECEIVED CONFIRMATION LEFT MSG WITH DERMATOLOGICAL SURGEON NURSE WILL F/U ON REFERRAL ON SATURDAY PHYSICIAN NEEDS TO UPDATE DC SUMMARY WILL FAX ON SATURDAY. JUST SPOKE WITH SACHIN [facility] SHE WILL HAVE ISABELL RN CALL ME REGARDING REFERRAL. DP TO FOLLOW.
[2020-07-31] MEDS ORDERED: ALLOPURINOL 10100 M2 PO (14:26)
--- NOTE | 2020-07-31 15:08 | NUR ---
ASSESSMENT CHARTED. PT ALERT AND ORIENTED. VSS. AFIB ON THE MONITOR. SEEN WITH DR. VALLEJO. ORDERS GIVEN TO DISCHARGE PT TO HOME WITH HOME HEALTH. DISCHARGE INSTRUCTIONS GIVEN TO PT AND THE DAUGHTER. THEY BOTH VERBERLISED UNDERSTANDING.
[2020-08-01 09:39] VITALS: BP 119/56
--- NOTE | 2020-08-01 10:10 | NUR ---
JUST SPOKE WITH GARO AT [facility] THEY CAN ACCEPT PT AND WILL CALL TO ARRANGE VISITS WITH PT.
[2020-08-01] MEDS ORDERED: LIPITOR40 MG PO (16:10)
[2020-08-01] MEDS ORDERED: KEFLEX500 M1 PO (16:40)
== END 2020-07-31 15:10 | disposition home health service (06) | DRG 236 ==
LOC: TBA 06:15 → ICU 06:15 → PRE 08:37 → ICU 14:24 → PRE 14:25 → 2N 07-23 17:46
PROVIDERS: Nurse Practitioner; Physician Assistant; ADMIT Surgery Vascular Surgery; ATTEND Surgery Vascular Surgery
PROC: 4A133B1 Monitoring of Arterial Pressure, Peripheral, Percutaneous Approach (ICD-10-PCS; principal; 2020-07-21)
PROC: 0BH17EZ Insertion of Endotracheal Airway into Trachea, Via Natural or Artificial Opening (ICD-10-PCS; principal; 2020-07-21)
PROC: 5A1221Z Performance of Cardiac Output, Continuous (ICD-10-PCS; principal; 2020-07-21)
PROC: 06BQ4ZZ Excision of Left Saphenous Vein, Percutaneous Endoscopic Approach (ICD-10-PCS; principal; 2020-07-21)
PROC: 021209W Bypass Coronary Artery, Three Arteries from Aorta with Autologous Venous Tissue, Open Approach (ICD-10-PCS; principal; 2020-07-21)
PROC: 05HY33Z Insertion of Infusion Device into Upper Vein, Percutaneous Approach (ICD-10-PCS; principal; 2020-07-21)
PROC: 4A133J1 Monitoring of Arterial Pulse, Peripheral, Percutaneous Approach (ICD-10-PCS; principal; 2020-07-21)
PROC: 02L70CK Occlusion of Left Atrial Appendage with Extraluminal Device, Open Approach (ICD-10-PCS; principal; 2020-07-21)
PROC: 03HY32Z Insertion of Monitoring Device into Upper Artery, Percutaneous Approach (ICD-10-PCS; principal; 2020-07-21)
PROC: 02100Z9 Bypass Coronary Artery, One Artery from Left Internal Mammary, Open Approach (ICD-10-PCS; principal; 2020-07-21)
PROC: 5A1935Z Respiratory Ventilation, Less than 24 Consecutive Hours (ICD-10-PCS; principal; 2020-07-21)
DX: I25.10 Atherosclerotic heart disease of native coronary artery without angina pectoris (principal); I48.21 Permanent atrial fibrillation; I10 Essential (primary) hypertension; E78.5 Hyperlipidemia, unspecified; M10.9 Gout, unspecified; D64.9 Anemia, unspecified; R33.9 Retention of urine, unspecified; Z20.828 Contact with and (suspected) exposure to other viral communicable diseases; Z88.8 Allergy status to other drugs, medicaments and biological substances; Z95.5 Presence of coronary angioplasty implant and graft; Z87.891 Personal history of nicotine dependence; N18.3 Chronic kidney disease, stage 3 (moderate)
CPT/HCPCS: 10078; 10081; 47000; 47001; 47002; 48888; 50010; 50249; 50409; 50456; 50498; 50668; 51301; 52131; 52259; 52287; 52314; 53327; 53358; 54118; 56455; 56524; 56525; 56526; 56527; 56528; 56531; 56534; 56719; 56760; 56898; 57093; 57116; 57167; 62110; 62950; 65020; 65047; 65120; 65135; 83006

== ENCOUNTER 2020-08-01 15:16 | Emergency (ER) | payer OTHER ==
[~2020-08-01] VITALS: Ht 195.6 cm; Wt 109.3 kg
[~2020-08-01 15:16] MED LIST changes: +ALLOPURINOL 10100 M2 PO; +ASPIR 8181 MG PO; +FERREX 150 PLU1 EAC1 PO; +LIPITOR40 MG PO; +NORVASC5 MG PO
[2020-08-01 15:56] LABS: ABSOLUTE NEUTROPHILS 9.7 thou/uL (1.4-8.2); BASOPHILS 0.4 % (0.0-2.0); EOSINOPHILS 1.3 % (0.0-3.0); HEMATOCRIT 28.4 % (42.0-52.0); HEMOGLOBIN 9.5 gm/dL (14.0-18.0); MCH 31.4 pg (26.0-34.0); MCHC 33.6 g/dL (28.0-37.0); MCV 93.6 fL (80.0-100.0); MONOCYTES 5.2 % (1.0-8.0); PLATELET COUNT 396 thou/uL (150-400); POLYS 84.1 % (36.0-66.0); RBC 3.03 mil/uL (4.50-6.00); WBC 11.5 thou/uL (4.0-11.0)
[2020-08-01 16:03] LABS: URINE BILIRUBIN NEGATIVE (Negative); URINE BLOOD 3+ (Negative); URINE CLARITY CLEAR; URINE COLOR YELLOW; URINE GLUCOSE-RANDOM* NEGATIVE (Negative); URINE KETONES NEGATIVE (Negative); URINE LEUKOCYTES-REFLEX 1+ (Negative); URINE NITRITE-REFLEX NEGATIVE (Negative); URINE PROTEIN (DIPSTICK) NEGATIVE (Negative); URINE UROBILINOGEN 0.2 E.U./dl (0.2-1.0)
--- NOTE | 2020-08-01 16:05 | EKG ---
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
[2020-08-01 16:09] LABS: CALCIUM 8.7 mg/dL (8.5-10.1); CREATININE 1.5 mg/dL (0.7-1.3); MAGNESIUM 2.5 mg/dL (1.8-2.4); POTASSIUM 3.9 mmol/L (3.5-5.1)
[2020-08-01] MEDS ORDERED: LIPITOR40 MG PO (16:10)
[2020-08-01 16:11] LABS: BACTERIA-REFLEX 1-9 Few /HPF (None Seen); CRYSTALS None Seen /LPF (None Seen); HYALINE CASTS 0-3 Few /LPF (None Seen); URINE RBC >20 Many /HPF (0-2)
[2020-08-01 16:12] LABS: SQUAMOUS 0-3 Few /LPF (0-3); URINE WBC-REFLEX 0-5 Rare /HPF (0-5)
[2020-08-01] MEDS ORDERED: KEFLEX500 M1 PO (16:40)
[2020-08-01 16:57] VITALS: BP 113/65
== END 2020-08-01 16:57 | disposition home or self-care (01) ==
LOC: ER 15:16
PROVIDERS: Emergency Medicine
DX: R19.7 Diarrhea, unspecified (principal); N39.0 Urinary tract infection, site not specified; I10 Essential (primary) hypertension; E78.00 Pure hypercholesterolemia, unspecified; Z96.652 Presence of left artificial knee joint; Z98.890 Other specified postprocedural states; Z79.899 Other long term (current) drug therapy; Z88.8 Allergy status to other drugs, medicaments and biological substances

== ENCOUNTER → 2020-10-27 | Outpatient (CLI) | payer OTHER | LOC: SJCVC 12:43 | PROVIDERS: ATTEND Internal Medicine Cardiovascular Disease | DX: I44.4 Left anterior fascicular block (principal); I45.10 Unspecified right bundle-branch block; R94.31 Abnormal electrocardiogram [ECG] [EKG]; I11.9 Hypertensive heart disease without heart failure; I48.20 Chronic atrial fibrillation, unspecified; I25.10 Atherosclerotic heart disease of native coronary artery without angina pectoris; E78.00 Pure hypercholesterolemia, unspecified; D68.59 Other primary thrombophilia; R42 Dizziness and giddiness; R60.9 Edema, unspecified ==

== ENCOUNTER → 2021-02-16 | Outpatient (CLI) | payer OTHER | LOC: SJCVCIMAG 09:22 | PROVIDERS: ATTEND Internal Medicine Cardiovascular Disease | DX: R94.31 Abnormal electrocardiogram [ECG] [EKG] (principal); I08.0 Rheumatic disorders of both mitral and aortic valves; I11.9 Hypertensive heart disease without heart failure; I45.2 Bifascicular block; I25.10 Atherosclerotic heart disease of native coronary artery without angina pectoris; I48.21 Permanent atrial fibrillation; R60.0 Localized edema; E78.00 Pure hypercholesterolemia, unspecified; E78.5 Hyperlipidemia, unspecified; M81.0 Age-related osteoporosis without current pathological fracture; Z95.1 Presence of aortocoronary bypass graft; Z88.8 Allergy status to other drugs, medicaments and biological substances; Z79.82 Long term (current) use of aspirin; Z79.899 Other long term (current) drug therapy; Z87.891 Personal history of nicotine dependence; Z86.16 Personal history of COVID-19; Z82.49 Family history of ischemic heart disease and other diseases of the circulatory system ==

== ENCOUNTER → 2021-08-31 | Outpatient (CLI) | payer OTHER | LOC: SJCVC 10:39 | PROVIDERS: ATTEND Internal Medicine Cardiovascular Disease | DX: I45.10 Unspecified right bundle-branch block (principal); R94.31 Abnormal electrocardiogram [ECG] [EKG]; I48.21 Permanent atrial fibrillation; I25.10 Atherosclerotic heart disease of native coronary artery without angina pectoris; I11.0 Hypertensive heart disease with heart failure; E78.00 Pure hypercholesterolemia, unspecified; R60.0 Localized edema; I65.23 Occlusion and stenosis of bilateral carotid arteries; D68.59 Other primary thrombophilia; M81.0 Age-related osteoporosis without current pathological fracture; E78.5 Hyperlipidemia, unspecified; Z95.1 Presence of aortocoronary bypass graft; Z79.82 Long term (current) use of aspirin; Z79.899 Other long term (current) drug therapy; Z98.890 Other specified postprocedural states; Z87.891 Personal history of nicotine dependence; Z88.8 Allergy status to other drugs, medicaments and biological substances; Z86.16 Personal history of COVID-19 ==